=== PATIENT | male | born 1990 | race Caucasian/White ===

== ENCOUNTER 2016-09-24 17:49 | Emergency (ER) | payer SELFPAY ==
[~2016-09-24] VITALS: Ht 167.6 cm; Wt 90.7 kg
--- NOTE | 2016-09-24 17:57 | NUR ---
PT IS IN ROOM #2A, WAITING FOR ER MD EVALUATION.
--- NOTE | 2016-09-24 18:38 | NUR ---
DR TIJERINA EVALUATED THE PT.
[2016-09-24] MEDS ORDERED: TDAP DIPH,PERTUSS,TET VAC/PF 0.5 ML DISP.SYRIN IM ONE ×2 (18:45→18:59)
[2016-09-24] MEDS ORDERED: LIDOCAINE HCL 1% 20 ML VIAL TP ONE (18:45)
[2016-09-24] MEDS ORDERED: LIDOCAINE HCL 1% 20 ML VIAL ONE (19:00)
--- NOTE | 2016-09-24 19:05 | NUR ---
Received report from STACY Arreola. Assumed care of pt at this time. Pt resting in position of comfort for self. Awaiting laceration repair.
--- NOTE | 2016-09-24 19:46 | NUR ---
Laceration repair completed by Dr. Butler with sutures.
--- NOTE | 2016-09-24 20:13 | NUR ---
Drsg and thumb spica splint applied. Pos CMS s/p application. Pt stable for discharge per MD. Pt and family given ACI. Both verbalized understanding of dc instructions. Pt ambulated out of er with steady gait and ride home.
[2016-09-24 20:15] VITALS: BP 153/96
== END 2016-09-24 20:16 | disposition home or self-care (01) ==
LOC: ER 17:49
DX: S61.012A Laceration without foreign body of left thumb without damage to nail, initial encounter (principal); I10 Essential (primary) hypertension; W26.0XXA Contact with knife, initial encounter; Y93.89 Activity, other specified; Y92.89 Other specified places as the place of occurrence of the external cause; Y99.8 Other external cause status
CPT/HCPCS: 90715; A4217; A4663; J3490

== ENCOUNTER 2016-10-01 11:19 | Emergency (ER) | payer SELFPAY ==
[~2016-10-01] VITALS: Ht 172.7 cm; Wt 90.7 kg
[2016-10-01] MEDS ORDERED: HYDR-3326 PO (11:28)
[2016-10-01] MEDS ORDERED: CEPH-570 PO (11:28)
--- NOTE | 2016-10-01 12:15 | NUR ---
pt was evaluated by dr walker. pt was d/c to home after er md evaluation. d/c instructions given to the pt.
[2016-10-01 12:16] VITALS: BP 132/65
== END 2016-10-01 12:19 | disposition home or self-care (01) ==
LOC: ER 11:19
DX: S61.012D Laceration without foreign body of left thumb without damage to nail, subsequent encounter (principal); X58.XXXD Exposure to other specified factors, subsequent encounter; Y92.9 Unspecified place or not applicable; Y99.9 Unspecified external cause status
CPT/HCPCS: A4663